=== PATIENT | female | born 1950 | race Caucasian/White ===

== ENCOUNTER 2017-03-29 10:21 | Emergency (ER) | payer MEDICARE, OTHER ==
[~2017-03-29] VITALS: Ht 148.6 cm; Wt 72.7 kg
[2017-03-29 10:28] VITALS: BP 174/103; PULSE 98; RESP 15; O2SAT 97
[2017-03-29] MEDS ORDERED: Ondansetron 2 mg/mL 2 mL Inj ONE (10:57)
--- NOTE | 2017-03-29 11:14 | ED.REPORT ---
HPI-Dizziness / Weakness Date of Service March 29, 2017 ED Provider: Doe Prasad MD 66 year old female with a history of recurrent vertigo, DM, high cholesterol, and HTN presents to the ER accompanied by her due to vertigo symptoms and vomiting onset yesterday morning. She reports dizziness that is reliably exacerbated with any movement. Associated symptoms include mild dull headache, shaking, and chronic mild tingling in her lower extremities. Patient denies fever, chills, diaphoresis, cough, changes in speech, changes in vision, and UTI symptoms. Typically she treats her bouts of vertigo taking a "sinus pill" and sleeping the whole day, which she tried without relief. Antivert has been ineffective for treating her vertigo in the past. Nursing Notes Stated Complaint: DIZZY/THROWN UP Chief Complaint: Neuro Symptoms/ Deficits Nursing Notes Reviewed: Yes Allergies: Uncoded Allergies: NARCOTICS (Allergy, 11/16/12) General Time Seen by MD: 11:12 Chief Complaint Vertigo Hx Obtained From: Patient Arrived By: Walk-in Onset Occurred: Yesterday Symptom Duration: Since onset Associated with: Reports: Nausea, Vomiting, Denies: Chills, Fever, Headache, Speech problem, Visual disturbance, Weakness Related History: Denies: CVA/TIA Similar Sx Previous: Yes Risk Factors NIH Stroke Scale Level of Consciousness: Alert and responsive (0) Ask Month & Age: Both questions right (0) Open/Close Eyes/Hand Color Control Supervisor: Performs both tasks (0) Horizontal EO Movements: None (0) Visual Duncan: No visual loss (0) Facial Palsy: Normal symmetry (0) Right Arm Motor Drift (10s): No drift 10 sec (0) Left Arm Motor Drift (10s): No drift 10 sec (0) Right Leg Motor Drift (5s): No drift 5 sec (0) Left Leg Motor Drift (5s): No drift 5 sec (0) Limb Ataxia FNF/Heel-Vega: No ataxia (0) Sensation (Arms/Legs/Face): No sensory loss (0) Language Aphasia: No aphasia, normal (0) Dysarthria: No dysarthria, normal (0) Extinction/Inattention: No exctinct/inattent (0) NIHSS Score: 0 Time NIHSS Performed: 11:35 Date NIHSS Performed: March 29, 2017 Past Medical History Past Medical History Lung nodule Hiatal hernia Recurrent Vertigo Reports: Diabetes mellitus, Hyperlipidemia, Hypertension, Denies: COPD, Cancer, Congestive heart failure, Coronary artery disease, Stroke , Transient ischemic attack Denies: Atrial fibrillation Smoking History Unknown if Ever Smoker Social History Other Social History: Good social support, Ambulatory Status Independent Review of Systems Constitutional: Denies: Chills, Fever Eyes: Denies: Blurred bilateral, Visual loss bilateral Ears / Nose / Throat: Denies: Hearing loss bilateral Respiratory: Denies: Non-productive cough, Shortness of breath Cardiovascular: Denies: Chest pain GI: Reports: Nausea, Vomiting Neurologic: Reports: Dizziness, Headache (Mild, dull), Shaking, Spinning sensation, Denies: Focal weakness, Seizure, Slurred speech, Unable to speak, Vision change, Weakness Complete sys rev & neg: except as marked. Female: Denies: Dysuria, Hematuria, Incontinence, Urinary frequency, Urinary urgency, Urination decreased, Urination increased Physical Exam Initial Vital Signs Vital Signs (First) Date Time Temp Pulse Resp B/P Pulse Ox O2 Delivery O2 Flow Rate FiO2 03/29/17 10:28 35.8 98 15 174/103 97 Room Air Initial VS: Reviewed Neck: Supple, Non-tender, Full range of motion Abdomen / GI: Soft, Non-tender, No guarding, No rebound, No distention Extremities: Vascular intact, Neuro intact, No swelling, No tenderness Skin: Warm, Dry, No cyanosis Psychiatric: Mood/affect normal, Behavior normal, Normal thought content General/Constitutional: Awake, Alert, No acute distress, Well appearing, Well developed, Well hydrated, Well nourished, Cooperative Head / Eyes: Atraumatic, Normocephalic Respiratory / Chest: Breath sounds NL, Breath sounds = bilat, No respiratory distress, No rales, No rhonchi, No wheezing Cardiovascular: Heart rate NL, Regular rhythm, Heart sounds NL, No murmurs, Cap refill not delayed, Peripheral circulation NL Neurologic: Oriented X3, Speech NL, No motor deficits, No sensory deficits, CN II - XII intact, Cerebellar NL Interpretation & Diagnostics Lab Results Interpretation Result Diagram: 03/29/17 1055 03/29/17 1055 Test 03/29/17 10:55 White Blood Count 6.5th/mm3 (3.8-10.1) Red Blood Count 4.23mil/mm3 (3.90-5.20) Hemoglobin 13.7g/dL (12.0-15.6) Hematocrit 38.5% (35.0-46.0) Mean Corpuscular Volume 91.0fL (81-100) Mean Corpuscular Hemoglobin 32.4pg (27.0-35.0) Mean Corpuscular Hemoglobin Concent 35.6% (32.0-37.0) Red Cell Distribution Width 12.9% (12.3-15.4) Platelet Count 283bil/L (150-400) Neutrophils (%) (Auto) 81.4% (40-74) Lymphocytes (%) (Auto) 11.5% (14-46) Monocytes (%) (Auto) 5.7% (4-12) Eosinophils (%) (Auto) 0.9% (0-5) Basophils (%) (Auto) 0.3% (0-3) Sodium Level 138mEq/L (134-144) Potassium Level 4.0mEq/L (3.5-5.2) Chloride Level 99mEq/L (97-108) Carbon Dioxide Level 23mmol/L (18-29) Blood Urea Nitrogen 13mg/dL (8-27) Creatinine 0.96mg/dL (0.57-1.00) Estimat Glomerular Filtration Rate 84mL/min (>59) Glucose Level 176mg/dL (60-99) Calcium Level 10.1mg/dL (8.5-10.1) Total Bilirubin 0.4mg/dL (0.0-1.2) Aspartate Amino Transf (AST/SGOT) 22U/L (0-50) Alanine Aminotransferase (ALT/SGPT) 13U/L (0-32) Alkaline Phosphatase 113U/L (25-165) Total Protein 7.9g/dL (6.4-8.4) Albumin 4.1g/dL (3.4-5.0) Re-Eval/Medical Decision Med Decision/Clinical Course This woman's symptoms are entirely consistent with benign positional vertigo. I see no objective evidence for stroke nor excessive risk pattern of same. She does have diabetes and hypertension which of course are risk factors but I do not believe that there are sufficient to warrant further evaluation at this time. Her symptoms are significantly improved with low-dose lorazepam Source of Hx: Old records Re-Evaluation/Progress : Time of Eval: 12:48 Patient Status: Condition improved Re-Evaluation/Progress Note: Patient is sleeping upon re-entering the room. Reports moderate relief of symptoms. Able to ambulate with steady gait. Counseled Regarding: Diagnosis, Lab results Patient Discharge & Departure Impression: Primary Impression: Benign positional vertigo Laterality: unspecified laterality Qualified Code: H81.10 - Benign paroxysmal vertigo, unspecified ear Disposition: Home Discharge Condition All VS Reviewed: Yes Condition: Stable Patient Instructions: Benign Paroxysmal Positional Vertigo (DC) Additional Instructions: Your workup today was reassuring. I do not believe that there is any dangerous cause for your symptoms at this time. Your symptoms are likely related to your typical vertigo and mild dehydration. Call your primary care provider to arrange a follow-up appointment in 1-2 days. Take lorazepam as needed to help with vertigo. Return to the ER if you develop worsening symptoms, changes in speech or vision , difficulty swallowing, confusion, numbness/weakness, fever, chills, chest pain , shortness of breath, or any other concerning symptoms. Referrals: Yohan Daniels MD (PCP) Scribe Attestation Portions of this note were transcribed by Riccadro Prado. I, Dr. Prasad, personally performed the history, physical exam and medical decision-making; I reviewed and confirmed the accuracy of the information in the transcribed note. Signed by: David Lovelace, 03/29/2017 at 11:47 Yohan Daniels MD, Kirk H MD March 29, 2017 11:14 RICCARDO PRADO March 29, 2017 11:38
[2017-03-29] MEDS ORDERED: 0.9% Sodium Chloride 1,000 ML IV ONE (11:45)
[2017-03-29 11:46] LABS: BASOPHILS % (AUTO) 0.3 % (0-3); EOSINOPHILS % (AUTO) 0.9 % (0-5); MONOCYTES % (AUTO) 5.7 % (4-12); Mean Corpuscular Hemoglobin 32.4 pg (27.0-35.0); NEUTROPHILS % (AUTO) 81.4 % (40-74); Platelet Count 283 bil/L (150-400)
[2017-03-29] MEDS ORDERED: LORA1TAB PO (13:17)
[2017-03-29 13:26] VITALS: BP 140/83; PULSE 87; RESP 14; O2SAT 93
== END 2017-03-29 13:30 | disposition home or self-care (01) ==
LOC: SED 10:21
DX: H81.10 Benign paroxysmal vertigo, unspecified ear (principal); R51 Headache; R25.1 Tremor, unspecified; R20.2 Paresthesia of skin; I10 Essential (primary) hypertension; E11.9 Type 2 diabetes mellitus without complications; E78.5 Hyperlipidemia, unspecified
CPT/HCPCS: 80053; 85025; 96361; 96374; 96375; 99284; J2060; J2405; J7030